=== PATIENT | female | born 1955 | race Caucasian/White ===

== ENCOUNTER → 2016-06-15 | Outpatient (CLI) | payer OTHER ==
[~2016-06-15] MED LIST: IOPAMIDOL (ISOVUE-300) 100 ML BTL IV ONE
--- NOTE | 2016-06-15 19:59 | CT ---
CT Scan of the Abdomen and Pelvis, With Contrast Indication: Abdominal pain in a 60-year-old female with a history of colonic diverticular disease. Technique: Multidetector CT images of the abdomen and pelvis were obtained following the uneventful intravenous administration of 90 mL Isovue-300 contrast. Dilute oral contrast was also administered. Axial images are obtained at 5-mm intervals and reformatted at 1.5-mm thickness. The examination i s reviewed on the workstation at multiple window/level settings. Sagittal and coronal reformations ar e performed. Dose reduction techniques were utilized for this examination. Comparison: No previous CT studies are available for comparison. Abdomen Lung bases: Normal. No pleural fluid. Scattered diverticula are noted throughout the colon. In the region of the right hepatic flexure, th ere is edema in the pericolic fat in a region of diverticular disease consistent with diverticulitis. There is no guadalupe abscess formation. There is a second area just distal to this region in the damon sverse colon where there is thickening of the wall of the colon in a region of diverticular disease, and this is probably a second focus of diverticulitis. Otherwise, extensive colonic diverticulosis i s noted, with no other inflammatory foci suspected. Liver: Several small well-circumscribed low-attenuation areas are seen in both hepatic lobes, and th zackery are presumably benign but are too small to accurately categorize. Comparison with prior studies, if available, would be helpful. There is also a 1-cm diameter area of asymmetric vascular enhanceme nt near the dome of the liver in the right lobe, and this is also presumably benign. Comparison with older studies, if available, would be helpful.. Biliary system: Normal gallbladder. No intra- or extrahepatic dilatation. Spleen: Normal. Pancreas: Normal. Adrenals: Normal. Kidneys: No obstruction or solid masses. Abdominal Aorta: Minimal aortic plaque formation is noted, without aneurysmal dilatation. No bowel obstruction, ascites, or retroperitoneal lymphadenopathy. CT Pelvis Findings: An abnormal appendix is not visualized. There is heterogeneous attenuation of t he uterus, which could reflect uterine fibroid formation. There is a 2.2-cm diameter low-attenuation area in the right adnexal region consistent with an ovarian cyst. Multiple pelvic phleboliths are n oted. Impressions 1. Extensive diverticulosis of the colon, with focal diverticulitis in the area of the hepatic flexu re as well as in the proximal transverse colon. Follow up should be performed to ensure complete res olution and exclude an underlying mass lesion. 2. Probably benign findings in the liver, as detailed above. Comparison with previous studies, if a vailable, would be helpful. Otherwise, a six-month follow-up could be obtained to assure stability. 3. See above report for additional findings. A preliminary report was called to the patient's healthcare provider, LANA De La Rosa. E:rex
== END ==
LOC: FIMAGING 15:53
PROVIDERS: ATTEND Nurse Practitioner
DX: R10.9 Unspecified abdominal pain (principal); Z87.19 Personal history of other diseases of the digestive system
CPT/HCPCS: Q9967

== ENCOUNTER 2016-08-12 16:26 | Emergency (ER) | payer OTHER ==
[2016-08-12 16:35] VITALS: BP 176/101; PULSE 80; RESP 16; TEMP 98.2; O2SAT 97
--- NOTE | 2016-08-12 17:17 | UCPHY ---
H & P Patient Type: New HPI/ROS: CHIEF COMPLAINT: Right forearm pain and bruising HISTORY OF PRESENT ILLNESS: Patient was walking her dog last Sunday. She had her leash wrapped around her right hand. Dog became entangled with another dog and smashed her right arm against the metal fence. At that time she noted no pain but did have some bruising later that day and the next morning. Over the past week she has had increasing bruising, swelling and hematoma of the right forearm. Various stages of healing about the bruising. She does not have any real pain until yesterday. At that time she noted some mild pain in the forearm. It is worse over the area of the largest fluctuance of the hematoma. No fever or chills. No numbness or tingling of the hand. No difficulty with range of motion. She is concerned over the level of bruising and of the hematoma. No other associated complaints or modifying factors. REVIEW OF SYSTEMS: Ten systems reviewed and are negative unless otherwise noted in the HPI EXAMINATION General Appearance: Alert, no distress Cardiovascular: Pulses normal throughout. Symmetric radial pulses are 2+. Brisk cap refill all 10 fingers. Neurological: A&O, sensory symmetric, strength symmetric at 5/5. Skin: Warm and dry. There is significant ecchymosis circumferentially on the right forearm and dorsum of the right hand. There is no laceration or abrasion noted. No petechiae. Extremities: Right upper extremity: Minimal tenderness of the forearm. There is no tenderness of the right elbow or radial head. No tenderness in the right snuffbox or metacarpals. Range of motion of the right elbow, hand, wrist and fingers are fully intact. No swelling noted. There is significant hematoma on the dorsum of the right forearm, mid shaft. No warmth to the skin. Neuro intact distal to the areas of injury. Psychiatric: Mood and affect normal DIFFERENTIAL DIAGNOSES: Including but not limited to hematoma, blunt trauma, crush injury, fracture, dislocation, fracture dislocation MDM: 4:50 p.m. Soft tissue injury from blunt trauma last Sunday. There is significant hematoma to the right forearm with circumferential bruising. She has minimal bony tenderness. She is fully neuro intact with excellent range of motion strength on the right hand, wrist and elbow. Given the significance of the hematoma and ecchymosis I will obtain an x-ray of the forearm to rule out occult fracture. 5:40 p.m. No evidence of fracture dislocation by my interpretation of the x-ray. She is neurovascular intact with no signs of DVT in the upper extremity. Given the size of the hematoma will place her on prophylaxis of Keflex. I am uncomfortable evacuating the hematoma here in this setting. I feel that she is better suited wound care early next week. She is to apply warm compresses and take the Keflex as prescribed. She is to return to the ER or urgent care for any swelling, redness, warmth or pain in the upper extremity. She is comfortable with this plan and discharged home stable condition. ED Precautions: Worsening pain. Erythema, edema, cyanosis, pallor, paresthesia or anesthesia. SUPERVISION: This patient was independently evaluated without direct examination by the attending physician. Case was discussed with attending physician. Smoking Status: Never smoked Constitutional: Initial Vital Signs Temperature (C) 98.2 F 08/12/16 16:31 Heart Rate 80 08/12/16 16:31 Respiratory Rate 16 08/12/16 16:31 Blood Pressure 176/101 H 08/12/16 16:31 O2 Sat (%) 97 08/12/16 16:31 O2 Delivery Mode Room Air Allergies/Adverse Reactions: penicillin G Allergy (Verified 06/10/12 11:41) Home Medications: Medication Instructions Recorded Cephalexin [Keflex (*)] 500 mg PO TID #30 cap 08/12/16 Lexapro 10 MG 08/12/16 MDM/Departure - Depart Disposition: Home, Routine, Self-Care Clinical Impression: Traumatic hematoma of right forearm Qualifiers: Encounter type: initial encounter Qualified Code(s): S50.11XA - Contusion of right forearm, initial encounter Condition: Good Instructions: Contusion in Adults (ED), Hematoma (ED) Additional Instructions: Warm compresses to the forearm, [id number] anti-inflammatories, elevation and compression. Keflex as prescribed. Follow up with orthopedics or primary care physician early next week. Return to the ER or urgent care for increasing erythema or swelling, increasing pain, sensory changes to the hand Prescriptions: Cephalexin [Keflex (*)] 500 mg PO TID #30 cap Referrals: Cuco Jenkins MD [Medical Doctor] - As per Instructions - PQRS PQRS Measurement: Not applicable
== END 2016-08-12 17:58 | disposition home or self-care (01) ==
LOC: CED 16:26
DX: S50.11XA Contusion of right forearm, initial encounter (principal); W54.8XXA Other contact with dog, initial encounter; Y93.K1 Activity, walking an animal
CPT/HCPCS: 73090-PO; 99203-PO; G0463-PO

== ENCOUNTER 2016-08-18 11:22 | Day surgery (SDC) | payer OTHER ==
[~2016-08-18 11:22] MED LIST changes: +BUPIVACAINE 0.5% 30 ML SDV ONE; -IOPAMIDOL (ISOVUE-300) 100 ML BTL IV ONE; +VANCOMYCIN HCL/NORMAL SALINE 250 ML IV ONE
[2016-08-18] MEDS ORDERED: LIDOCAINE 1% 2 ML INJ ONE (11:38)
[2016-08-18] MEDS ORDERED: fentaNYL 100 MCG/2 ML INJ ONE ×3 (14:14→15:10)
[2016-08-18] MEDS ORDERED: DEXAMETHASONE 4 MG/ML VIAL ONE (14:15)
[2016-08-18] MEDS ORDERED: PROPOFOL 200 MG/20 ML VIAL ONE (14:24)
[2016-08-18] MEDS ORDERED: LIDOCAINE 1% 30 ML SDV ONE (14:26)
[2016-08-18] MEDS ORDERED: KETOROLAC 30 MG/1 ML SDV ONE (14:42)
--- NOTE | 2016-08-18 15:33 | GOP ---
[f rep st] OPERATIVE REPORT DATE OF OPERATION: 08/18/2016 SURGEON: Khadijah Díaz MD ANESTHESIA: Monitored anesthesia care with IV sedation. ANESTHESIOLOGIST: Opal Solares MD. PREOPERATIVE DIAGNOSIS: Traumatic wound, right forearm. POSTOPERATIVE DIAGNOSIS: Traumatic wound, right forearm. PROCEDURE PERFORMED: Excisional debridement with evacuation of hematoma. FINDINGS: The wound measures 12 x 6 x 0.7 cm who went down to the level of the fascia. SPECIMENS: None. ESTIMATED BLOOD LOSS: 10 cc. INDICATIONS: Jeny Peterson is a 60-year-old who hit her arm on a door while walking with her dog . She developed a massive hematoma, it was evacuated in the office; however, there was still retain ed hematoma and it was becoming very painful. DESCRIPTION OF PROCEDURE: She was brought into the operating room, placed supine on the table, and monitored anesthesia care with IV sedation was performed. I prepped her arm with Betadine and drape d it in the usual sterile fashion. I evacuated the hematoma. The wound extended both proximal and distal. After the hematoma was debrided, hemostasis was achieved. The wound was irrigated with endoscopy rn ious amounts of saline. A 15-round silicone drain was placed. The drain was placed with 3-0 nylon. The wound was closed with 3-0 nylon. Mepilex border was applied. She tolerated the procedure caitlyn evangelista /[id number]/MODL
[2016-08-18] MEDS ORDERED: OXYCODONE/APAP 5/325 TAB ONE (15:53)
[2016-08-18] MEDS ORDERED: ONDANSETRON 4 MG/2 ML VIAL IVP PRN (16:23)
[2016-08-18] MEDS ORDERED: OXYCODONE/APAP 5/325 TAB PO PRN (16:23)
== END 2016-08-18 16:40 | disposition home or self-care (01) ==
LOC: FSGY 11:22
PROVIDERS: ATTEND Surgery
PROC: 0J9G0ZZ Drainage of Right Lower Arm Subcutaneous Tissue and Fascia, Open Approach (ICD-10-PCS; principal; 2016-08-18 14:30)
DX: S50.11XA Contusion of right forearm, initial encounter (principal); W22.8XXA Striking against or struck by other objects, initial encounter; Y93.K1 Activity, walking an animal; M54.2 Cervicalgia; Z88.0 Allergy status to penicillin; Z91.040 Latex allergy status
CPT/HCPCS: J1100; J1885; J2704; J3010; J3370

== ENCOUNTER → 2017-05-25 | Outpatient (CLI) | payer OTHER | LOC: FIMAGING 12:52 | PROVIDERS: ATTEND Obstetrics & Gynecology Gynecology | DX: Z12.31 Encounter for screening mammogram for malignant neoplasm of breast (principal) ==